=== PATIENT | female | born 1980 | race Caucasian/White ===

== ENCOUNTER 2017-07-12 07:53 | Outpatient (CLI) | payer SELFPAY ==
[2017-07-12] MEDS ORDERED: PROVENTIL IH ONE (09:06)
== END 2017-07-12 07:54 | disposition home or self-care (01) ==
LOC: PF 07:53
PROVIDERS: ATTEND Internal Medicine
DX: J45.909 Unspecified asthma, uncomplicated (principal)
CPT/HCPCS: 36600; 82803; 94060; 94640; 94726; 94729